=== PATIENT | female | born 1985 | race Hispanic/Latino ===

== ENCOUNTER 2024-04-11 11:54 | Emergency (ER) | payer MEDICAID, OTHER ==
[2024-04-11] MEDS ORDERED: Magnesium 2 GM/50 ML BAG (IN WATER) ONE (12:18)
[2024-04-11] MEDS ORDERED: hydrALAZINE 20 MG/ML VIAL ONE (12:19)
[2024-04-11 12:31] LABS: #Basophils Less than 0.03 10x3/uL (0.0-0.2); %Basophils 0.3 % (0.0-1.0); %Eosinophils 1.8 % (0.0-10.0); %Lymphocytes 27.3 % (21.0-51.0); %Monocytes 8.8 % (0.0-10.0); %Neutrophils 61.5 % (42.0-75.0); Hematocrit 32.5 % (36.0-47.0); Hemoglobin 11.4 g/dL (12.0-16.0); Mean Corpuscular HGB CONC 35.1 g/dL (32.0-36.0); Mean Corpuscular Volume 85.5 fL (78.0-98.0); Mean Platelet Volume 9.3 fL (7.4-10.4); Platelet Count 385 10x3/uL (130-400); RBC Distribution Width 12.6 % (11.5-14.5)
[2024-04-11 13:02] LABS: ALT (SGPT) 21 U/L (8-55); AST (SGOT) 18 U/L (5-34); Alkaline Phosphatase 149 U/L (40-110); Anion Gap 14 mmol/L (10-20); BUN (Urea Nitrogen) 5 mg/dL (7.0-18.7); Bilirubin, Total 0.2 mg/dL (0.2-1.2); Calc. Creatinine Clearance 0 mL/min (70-130); Calcium 9.3 mg/dL (7.8-10.44); Carbon Dioxide 19 mmol/L (22-29); Chloride 108 mmol/L (98-107); Estimated GFR 123; Globulin 4.9 g/dL (2.4-3.5); Glucose 78 mg/dL (70-105); Potassium 3.2 mmol/L (3.5-5.1); Protein, Total 7.9 g/dL (6.0-8.3); Sodium 138 mmol/L (136-145)
[2024-04-11 13:09] LABS: INR-International Normal Ratio 0.9; Prothrombin Time 12.2 sec (12.0-14.7)
[2024-04-11 13:10] LABS: PTT 28.3 sec (22.9-36.1)
== END 2024-04-11 13:02 | disposition short-term general hospital (02) ==
LOC: ERS 11:54
DX: O14.93 Unspecified pre-eclampsia, third trimester (principal); O47.03 False labor before 37 completed weeks of gestation, third trimester; Z3A.34 34 weeks gestation of pregnancy
CPT/HCPCS: 80053; 85025; 85610; 85730; 86850; 86900; 86901; 96365; 96375; J0360; J3475